=== PATIENT | female | born 1980 | race Hispanic/Latino ===

== ENCOUNTER 2021-04-12 12:53 | Emergency (ER) | payer SELFPAY ==
[~2021-04-12] VITALS: Ht 152.4 cm; Wt 69.4 kg
[2021-04-12 14:03] VITALS: BP 134/61
== END 2021-04-12 14:02 | disposition home or self-care (01) ==
LOC: ER 13:40
DX: H60.91 Unspecified otitis externa, right ear (principal); J02.9 Acute pharyngitis, unspecified
CPT/HCPCS: 99282